=== PATIENT | male | born 1955 | race Caucasian/White ===

== ENCOUNTER 2020-07-22 13:49 | IRF | payer OTHER, SELFPAY ==
--- NOTE | 2020-07-22 15:14 | ADMGEN ---
This patient, Arben Jackson, was admitted to [facility] Room 225-02. Patient/family oriented to hospital policies and general routines including ID bracelet, bed and alarms, visiting hours, pain management, procedures, bathroom and other care routines, personal items, smoking policy, room service/diet, and visiting hours. Information on how to activate the Rapid Response Team has been discussed. Patient/Family are encouraged to report perceived risks to care and to ask questions if they do not understand what they are told or what they should do.
[2020-07-22 15:20] VITALS: BP 122/62; PULSE 91; RESP 16; TEMP 36.3; O2SAT 97; BMI 31.1
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
[2020-07-22] MEDS: HYDROcodone/acetaminophen (*CRX) 5-325 MG TABLET 1 TAB PO (17:50)
[2020-07-22] MEDS: CALCIUM CARBONATE (OSCAL) 500 MG TABLET PO (17:50)
[2020-07-22] MEDS: APIXABAN 2.5 MG TABLET PO (17:50)
[2020-07-22] MEDS: SENNOSIDES 8.6 MG TABLET 17.2 MG PO (20:38)
[2020-07-22] MEDS: DOCUSATE SODIUM 100 MG CAPSULE PO (20:38)
[2020-07-22 21:44] VITALS: BP 149/73; PULSE 86; RESP 16; TEMP 36.8; O2SAT 95
[2020-07-23 05:21] LABS: Basophils Percent Auto 0.5 % (0.2-1.2); Eosinophils Absolute Auto 0.1 K/mm3 (0-0.3); Eosinophils Percent Auto 3.2 % (0-4.4); Hematocrit 32.2 % (42.0-52.0); Hemoglobin 9.9 g/dL (14.0-18.0); Immature Granulocyte Absolute 0.01 K/mm3 (0.00-0.031); Immature Granulocyte Percent A 0.5 % (0-0.5); Lymphocytes Percent Auto 32.1 % (18.3-44.2); Mean Corpuscular HGB Conc 30.7 g/dl (32-36); Mean Platelet Volume 9.9 fl (7.4-10.4); Monocytes Absolute Auto 0.3 K/mm3 (0.1-0.6); Monocytes Percent Auto 11.9 % (2.6-8.5); Neutrophils Absolute Auto 1.1 K/mm3 (1.3-6.7); Neutrophils Percent Auto 51.8 % (45.5-73.1); Platelet Count Result 207 k/mm3 (150-375); Red Blood Count 3.66 M/mm3 (4.6-6.20); White Blood Count 2.2 K/mm3 (4.5-10.0)
[2020-07-23 05:34] LABS: Alanine Aminotransferase 23 U/L (4-50); Albumin Level 3.7 g/dL (3.5-5.1); Alkaline Phosphatase 175 U/L (38-126); Anion Gap 8 mmol/L (8-16); Aspartate Amino Transferase 27 U/L (17-59); Bilirubin,Total 0.5 mg/dL (0.2-1.3); Blood Urea Nitrogen 18 mg/dL (9-20); Calcium 8.8 mg/dL (8.4-10.2); Carbon Dioxide 26 mmol/L (22-30); Chloride 106 mmol/L (98-107); Estimated CRCL calculation 115 ml/min; Estimated Glomerular Filt Rate > 60; Glucose 119 mg/dL (75-110); Potassium 4.1 mmol/L (3.4-5.0); Sodium 140 mmol/L (137-145)
[2020-07-23 06:00] VITALS: BP 141/74; PULSE 77; RESP 16; TEMP 36.3; O2SAT 96
[2020-07-23] MEDS: FERROUS SULFATE 324 MG TABLET PO (06:48)
[2020-07-23 08:14] VITALS: PULSE 84
[2020-07-23] MEDS: HYDROcodone/acetaminophen (*CRX) 5-325 MG TABLET 1 TAB PO ×2 (09:04→21:38)
[2020-07-23] MEDS: amLODIPine BESYLATE 5 MG TABLET 10 MG PO (09:05)
[2020-07-23] MEDS: ACETAMINOPHEN 500 MG TABLET 1000 MG PO ×2 (09:05→18:15)
[2020-07-23] MEDS: APIXABAN 2.5 MG TABLET PO ×2 (09:05→18:15)
[2020-07-23] MEDS: FENOFIBRATE 160 MG TABLET PO (09:06)
[2020-07-23] MEDS: MULTIVITAMINS THERAPEUTIC TAB (*BKC) 1 TABLET PO (09:06)
[2020-07-23] MEDS: CYANOCOBALAMIN 1,000 MCG TABLET 1000 MCG PO (09:06)
[2020-07-23] MEDS: FLUoxetine HCL 20 MG CAPSULE 40 MG PO (09:06)
[2020-07-23] MEDS: CALCIUM CARBONATE (OSCAL) 500 MG TABLET PO ×2 (09:06→18:15)
[2020-07-23] MEDS: DOCUSATE SODIUM 100 MG CAPSULE PO ×2 (09:06→21:09)
[2020-07-23] MEDS: ASPIRIN 81 MG ENTERIC TABLET PO (09:06)
[2020-07-23] MEDS: SENNOSIDES 8.6 MG TABLET 17.2 MG PO ×2 (09:07→21:09)
[2020-07-23] MEDS: SIMVASTATIN 20 MG TABLET PO (09:07)
[2020-07-23] MEDS: lisinopriL 20 MG TABLET 40 MG PO (09:07)
[2020-07-23] MEDS: FOLIC ACID 1 MG TABLET PO (09:07)
[2020-07-23 10:01] VITALS: BMI 31.1
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
--- NOTE | 2020-07-23 11:43 | PCPTNOTE ---
Arben Jackson was evaluated for a wheeled walker on 07/23/2020 by this physical therapist. The wheeled walker will resolve patient's mobility limitations and will be used for ADL's within the home. The patient can safely use the wheeled walker. ?The wheeled walker will resolve the patient?s mobility deficits, including NWBing L LE, balance deficits, and endurance deficits.
--- NOTE | 2020-07-23 13:03 | PCNSR ---
On 07/23/20, the student,Emily Youssef, provided care and completed [facility] documentation on this patient. I have reviewed the student's documentation and agree with the findings.
[2020-07-23 13:48] VITALS: BP 137/65; PULSE 72; RESP 16; TEMP 36.3; O2SAT 100
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
[2020-07-23 22:00] VITALS: BP 146/66; PULSE 76; RESP 16; TEMP 36.3; O2SAT 96
[2020-07-24 05:45] VITALS: BP 151/79; PULSE 73; RESP 16; TEMP 36.3; O2SAT 96
[2020-07-24] MEDS: FERROUS SULFATE 324 MG TABLET PO (06:26)
[2020-07-24 08:00] VITALS: PULSE 73; RESP 16; O2SAT 96
[2020-07-24] MEDS: SENNOSIDES 8.6 MG TABLET 17.2 MG PO (09:01)
[2020-07-24] MEDS: SIMVASTATIN 20 MG TABLET PO (09:01)
[2020-07-24] MEDS: CALCIUM CARBONATE (OSCAL) 500 MG TABLET PO ×2 (09:01→16:48)
[2020-07-24] MEDS: APIXABAN 2.5 MG TABLET PO ×2 (09:01→16:48)
[2020-07-24] MEDS: ASPIRIN 81 MG ENTERIC TABLET PO (09:01)
[2020-07-24] MEDS: CYANOCOBALAMIN 1,000 MCG TABLET 1000 MCG PO (09:01)
[2020-07-24] MEDS: lisinopriL 20 MG TABLET 40 MG PO (09:02)
[2020-07-24] MEDS: amLODIPine BESYLATE 5 MG TABLET 10 MG PO (09:02)
[2020-07-24] MEDS: DOCUSATE SODIUM 100 MG CAPSULE PO (09:02)
[2020-07-24] MEDS: FENOFIBRATE 160 MG TABLET PO (09:02)
[2020-07-24] MEDS: FLUoxetine HCL 20 MG CAPSULE 40 MG PO (09:02)
[2020-07-24] MEDS: FOLIC ACID 1 MG TABLET PO (09:02)
[2020-07-24] MEDS: MULTIVITAMINS THERAPEUTIC TAB (*BKC) 1 TABLET PO (09:03)
[2020-07-24] MEDS: HYDROcodone/acetaminophen (*CRX) 5-325 MG TABLET 1 TAB PO ×3 (09:06→20:20)
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
[2020-07-24 14:00] VITALS: BP 131/72; PULSE 84; RESP 20; TEMP 36.2; O2SAT 98
[2020-07-24] MEDS: ACETAMINOPHEN 500 MG TABLET 1000 MG PO (16:48)
[2020-07-24 22:00] VITALS: BP 125/57; PULSE 78; RESP 16; TEMP 35.9; O2SAT 98
[2020-07-25] MEDS: ACETAMINOPHEN 500 MG TABLET PO ×3 (01:32→23:47)
[2020-07-25 05:50] VITALS: BP 124/61; PULSE 73; RESP 16; TEMP 35.9; O2SAT 94
[2020-07-25] MEDS: FERROUS SULFATE 324 MG TABLET PO (06:43)
[2020-07-25] MEDS: ASPIRIN 81 MG ENTERIC TABLET PO (08:27)
[2020-07-25] MEDS: amLODIPine BESYLATE 5 MG TABLET 10 MG PO (08:27)
[2020-07-25] MEDS: APIXABAN 2.5 MG TABLET PO ×2 (08:27→17:18)
[2020-07-25] MEDS: SIMVASTATIN 20 MG TABLET PO (08:27)
[2020-07-25] MEDS: CALCIUM CARBONATE (OSCAL) 500 MG TABLET PO ×2 (08:27→17:18)
[2020-07-25] MEDS: MULTIVITAMINS THERAPEUTIC TAB (*BKC) 1 TABLET PO (08:28)
[2020-07-25] MEDS: FENOFIBRATE 160 MG TABLET PO (08:28)
[2020-07-25] MEDS: lisinopriL 20 MG TABLET 40 MG PO (08:28)
[2020-07-25] MEDS: ACETAMINOPHEN 500 MG TABLET 1000 MG PO ×2 (08:28→17:18)
[2020-07-25] MEDS: CYANOCOBALAMIN 1,000 MCG TABLET 1000 MCG PO (08:28)
[2020-07-25] MEDS: FLUoxetine HCL 20 MG CAPSULE 40 MG PO (08:28)
[2020-07-25] MEDS: FOLIC ACID 1 MG TABLET PO (08:28)
[2020-07-25] MEDS: ALBUTEROL SULFATE (*SP) INHALER 2 PUFF INHALATION (08:54)
[2020-07-25 14:00] VITALS: BP 150/68; PULSE 87; RESP 20; TEMP 36; O2SAT 98
[2020-07-25 22:00] VITALS: BP 107/45; PULSE 84; RESP 16; TEMP 36.5; O2SAT 97
[2020-07-26] MEDS: HYDROcodone/acetaminophen (*CRX) 5-325 MG TABLET 1 TAB PO (03:04)
[2020-07-26 06:00] VITALS: BP 139/77; PULSE 73; RESP 16; TEMP 36.1; O2SAT 98
[2020-07-26] MEDS: FERROUS SULFATE 324 MG TABLET PO (06:39)
[2020-07-26] MEDS: CYANOCOBALAMIN 1,000 MCG TABLET 1000 MCG PO (08:43)
[2020-07-26] MEDS: amLODIPine BESYLATE 5 MG TABLET 10 MG PO (08:43)
[2020-07-26] MEDS: ASPIRIN 81 MG ENTERIC TABLET PO (08:43)
[2020-07-26] MEDS: CALCIUM CARBONATE (OSCAL) 500 MG TABLET PO ×2 (08:43→17:01)
[2020-07-26] MEDS: FENOFIBRATE 160 MG TABLET PO (08:43)
[2020-07-26] MEDS: lisinopriL 20 MG TABLET 40 MG PO (08:43)
[2020-07-26] MEDS: FLUoxetine HCL 20 MG CAPSULE 40 MG PO (08:43)
[2020-07-26] MEDS: SIMVASTATIN 20 MG TABLET PO (08:43)
[2020-07-26] MEDS: APIXABAN 2.5 MG TABLET PO ×2 (08:43→17:01)
[2020-07-26] MEDS: MULTIVITAMINS THERAPEUTIC TAB (*BKC) 1 TABLET PO (08:43)
[2020-07-26] MEDS: FOLIC ACID 1 MG TABLET PO (08:44)
[2020-07-26] MEDS: ACETAMINOPHEN 500 MG TABLET 1000 MG PO ×2 (08:44→17:01)
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
[2020-07-26 14:00] VITALS: BP 112/52; PULSE 81; RESP 20; TEMP 36.6; O2SAT 99
--- NOTE | 2020-07-26 15:47 | PCPTNOTE ---
Kiki AViolet Oneil PTA completed an inpatient rehab wheelchair evaluation on Arben Jackson on 07/26/2020. The patient is unable to safely and independently ambulate household distances due to their current impairments. Their diagnosis is Acute comminuted fracture proximal tibia/fibula and their impairments include decreased strength, decreased endurance, decreased range of motion, decreased balance and lower extremity weakness. Arben's weight bearing status is weight-bearing as tolerated on the right lower leg and non weight bearing left lower leg. The patient demonstrates significant functional mobility limitations that impair their ability to participate in mobility-related activities of daily living (MRADLs), including toileting, feeding, dressing, grooming, and bathing in the customary locations in the home. These limitations cannot be sufficiently resolved by the use of an appropriately fitted cane or walker. It is recommended that the patient utilize a wheelchair for functional mobility within the home in order to facilitate optimal safety, independence and participation in all MRADL's and adequately access their home environment on a regular basis. The patient's home provides adequate access between rooms, maneuvering space, and surfaces to accommodate the recommended wheelchair. The use of a wheelchair for functional mobility is strongly recommended and the patient is receptive to using the wheelchair. The use of this wheelchair will significantly improve the patient's ability to participate in MRADLS and the patient will use it on a regular basis in the home. This will facilitate optimal safety, independence, and participation. The patient has demonstrated sufficient physical and mental capabilities needed to safely propel a manual wheelchair that is provided in the home during a typical day. Recommended Wheelchair Frame: Standard Recommended Wheelchair Size: 18x18 Recommended Wheelchair Cushion:Standard Wheelchair Leg Recommendations: Bilateral elevating leg rests - Elevating leg rests are recommended because the patient has significant edema of the lower extremities that requires an elevating legrest. -Anti-tippers are recommended due to patient demonstrating increased risk for falls. They would benefit from anti-tippers with added safety and stabilization. Kiki Ardonenport GLASS TINTER 07/26/2020 Evaluating Therapist Date I agree with and certify that the above recommendation is medically necessary. Referring Physician Date I agree with and certify that the above recommendation is medically necessary. Referring Physician Date
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
[2020-07-26 21:17] VITALS: BP 159/75; PULSE 84; RESP 16; TEMP 36.5; O2SAT 98
[2020-07-27] MEDS: ACETAMINOPHEN 500 MG TABLET PO (01:45)
[2020-07-27] MEDS: HYDROcodone/acetaminophen (*CRX) 5-325 MG TABLET 1 TAB PO (04:54)
[2020-07-27] MEDS: FERROUS SULFATE 324 MG TABLET PO (05:50)
[2020-07-27 06:00] VITALS: BP 136/84; PULSE 76; RESP 16; TEMP 36.2; O2SAT 97
[2020-07-27] MEDS: FENOFIBRATE 160 MG TABLET PO (09:53)
[2020-07-27] MEDS: FOLIC ACID 1 MG TABLET PO (09:53)
[2020-07-27] MEDS: ERGOCALCIFEROL 50,000 UNIT CAPSULE 50000 UNITS PO (09:53)
[2020-07-27] MEDS: FLUoxetine HCL 20 MG CAPSULE 40 MG PO (09:53)
[2020-07-27] MEDS: ACETAMINOPHEN 500 MG TABLET 1000 MG PO ×2 (09:53→17:17)
[2020-07-27] MEDS: CYANOCOBALAMIN 1,000 MCG TABLET 1000 MCG PO (09:53)
[2020-07-27] MEDS: amLODIPine BESYLATE 5 MG TABLET 10 MG PO (09:53)
[2020-07-27] MEDS: APIXABAN 2.5 MG TABLET PO ×2 (09:54→17:17)
[2020-07-27] MEDS: SIMVASTATIN 20 MG TABLET PO (09:54)
[2020-07-27] MEDS: lisinopriL 20 MG TABLET 40 MG PO (09:54)
[2020-07-27] MEDS: MULTIVITAMINS THERAPEUTIC TAB (*BKC) 1 TABLET PO (09:54)
[2020-07-27] MEDS: ASPIRIN 81 MG ENTERIC TABLET PO (09:54)
[2020-07-27] MEDS: CALCIUM CARBONATE (OSCAL) 500 MG TABLET PO ×2 (09:54→17:17)
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
[2020-07-27 14:00] VITALS: BP 109/58; PULSE 86; RESP 18; TEMP 36.8; O2SAT 100
[2020-07-27 21:37] VITALS: BP 153/85; PULSE 79; RESP 20; TEMP 36.2; O2SAT 98
[2020-07-28] MEDS: HYDROcodone/acetaminophen (*CRX) 5-325 MG TABLET 1 TAB PO ×3 (02:32→21:29)
[2020-07-28 06:00] VITALS: BP 139/81; PULSE 75; RESP 18; TEMP 36.3; O2SAT 99
[2020-07-28] MEDS: FERROUS SULFATE 324 MG TABLET PO (06:40)
[2020-07-28] MEDS: ACETAMINOPHEN 500 MG TABLET 1000 MG PO ×2 (08:45→17:54)
[2020-07-28] MEDS: ASPIRIN 81 MG ENTERIC TABLET PO (08:46)
[2020-07-28] MEDS: CALCIUM CARBONATE (OSCAL) 500 MG TABLET PO ×2 (08:46→17:54)
[2020-07-28] MEDS: APIXABAN 2.5 MG TABLET PO ×2 (08:46→17:54)
[2020-07-28] MEDS: amLODIPine BESYLATE 5 MG TABLET 10 MG PO (08:46)
[2020-07-28] MEDS: DOCUSATE SODIUM 100 MG CAPSULE PO (08:47)
[2020-07-28] MEDS: FLUoxetine HCL 20 MG CAPSULE 40 MG PO (08:47)
[2020-07-28] MEDS: lisinopriL 20 MG TABLET 40 MG PO (08:47)
[2020-07-28] MEDS: FENOFIBRATE 160 MG TABLET PO (08:47)
[2020-07-28] MEDS: SIMVASTATIN 20 MG TABLET PO (08:47)
[2020-07-28] MEDS: FOLIC ACID 1 MG TABLET PO (08:47)
[2020-07-28] MEDS: CYANOCOBALAMIN 1,000 MCG TABLET 1000 MCG PO (08:47)
[2020-07-28] MEDS: SENNOSIDES 8.6 MG TABLET 17.2 MG PO (08:48)
[2020-07-28] MEDS: MULTIVITAMINS THERAPEUTIC TAB (*BKC) 1 TABLET PO (08:48)
[2020-07-28 14:00] VITALS: BP 134/73; PULSE 82; RESP 20; TEMP 36.4; O2SAT 99
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
[2020-07-28 22:00] VITALS: BP 120/83; PULSE 78; RESP 16; TEMP 36.3; O2SAT 97
[2020-07-29] MEDS: ACETAMINOPHEN 500 MG TABLET PO (02:58)
[2020-07-29 05:58] VITALS: BP 152/83; PULSE 71; RESP 18; TEMP 35.9; O2SAT 99
[2020-07-29] MEDS: FERROUS SULFATE 324 MG TABLET PO (06:25)
[2020-07-29 08:00] VITALS: PULSE 71; RESP 18; O2SAT 99
[2020-07-29] MEDS: FLUoxetine HCL 20 MG CAPSULE 40 MG PO (08:46)
[2020-07-29] MEDS: amLODIPine BESYLATE 5 MG TABLET 10 MG PO (08:47)
[2020-07-29] MEDS: ACETAMINOPHEN 500 MG TABLET 1000 MG PO (08:47)
[2020-07-29] MEDS: lisinopriL 20 MG TABLET 40 MG PO (08:47)
[2020-07-29] MEDS: ASPIRIN 81 MG ENTERIC TABLET PO (08:47)
[2020-07-29] MEDS: APIXABAN 2.5 MG TABLET PO (08:47)
[2020-07-29] MEDS: FENOFIBRATE 160 MG TABLET PO (08:47)
[2020-07-29] MEDS: CALCIUM CARBONATE (OSCAL) 500 MG TABLET PO (08:48)
[2020-07-29] MEDS: CYANOCOBALAMIN 1,000 MCG TABLET 1000 MCG PO (08:48)
[2020-07-29] MEDS: DOCUSATE SODIUM 100 MG CAPSULE PO (08:48)
[2020-07-29] MEDS: FOLIC ACID 1 MG TABLET PO (08:48)
[2020-07-29] MEDS: SENNOSIDES 8.6 MG TABLET 17.2 MG PO (08:48)
[2020-07-29] MEDS: MULTIVITAMINS THERAPEUTIC TAB (*BKC) 1 TABLET PO (08:48)
[2020-07-29] MEDS: SIMVASTATIN 20 MG TABLET PO (08:49)
[2020-07-29] MEDS: HYDROcodone/acetaminophen (*CRX) 5-325 MG TABLET 1 TAB PO (08:57)
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
== END 2020-07-29 13:00 | disposition home health service (06) | DRG 561 ==
PROVIDERS: Admitting Provider Physical Medicine & Rehabilitation; Visit Provider Physical Medicine & Rehabilitation
DX: S82.142D Displaced bicondylar fracture of left tibia, subsequent encounter for closed fracture with routine healing (principal); S06.9X9D Unspecified intracranial injury with loss of consciousness of unspecified duration, subsequent encounter; T79.A22D Traumatic compartment syndrome of left lower extremity, subsequent encounter; S82.452D Displaced comminuted fracture of shaft of left fibula, subsequent encounter for closed fracture with routine healing; V29.9XXD Motorcycle rider (driver) (passenger) injured in unspecified traffic accident, subsequent encounter; D50.0 Iron deficiency anemia secondary to blood loss (chronic); D72.819 Decreased white blood cell count, unspecified; E78.5 Hyperlipidemia, unspecified; F17.210 Nicotine dependence, cigarettes, uncomplicated; I10 Essential (primary) hypertension; J44.9 Chronic obstructive pulmonary disease, unspecified; K76.9 Liver disease, unspecified
CPT/HCPCS: 36415; 80053; 85025; 94640; 97110; 97116; 97161; 97165; 97530; 97535; 97542; A9270